=== PATIENT | female | born 1970 | race Caucasian/White ===

== ENCOUNTER 2017-10-30 16:33 | Inpatient (IN) | payer OTHER ==
[~2017-10-30] VITALS: Ht 170.2 cm; Wt 78.9 kg
[2017-10-30 21:16] VITALS: BP 126/62; PULSE 90; TEMP 36.9; O2SAT 95; Ht 170.2 cm; Wt 78.9 kg
[2017-10-30] MEDS ORDERED: METO-478 PO (21:34)
[2017-10-30] MEDS ORDERED: HYDR-3419 PO (21:34)
[2017-10-30] MEDS ORDERED: TRAZ100T29 PO (21:34)
[2017-10-30] MEDS ORDERED: GABA-113 PO (21:34)
[2017-10-30] MEDS ORDERED: ZOLP5TAB PO (21:34)
[2017-10-30] MEDS ORDERED: POLYETHYLENE (MIRALAX) 17 GM PACK PO PRN (23:00)
[2017-10-30] MEDS ORDERED: ALUMINUM/MAGNESIUM/SIMETH (MAALOX MAX) 30 ML UDC PO PRN (23:00)
[2017-10-30] MEDS ORDERED: NITROGLYCERIN 0.4 MG SL PER TAB CHARGE SL PRN (23:00)
[2017-10-30] MEDS ORDERED: ONDANSETRON INJ 2 MG/ML 2 ML VIAL IV PRN (23:00)
[2017-10-30] MEDS ORDERED: PIPERACILL/TAZOBAC CONSULT ACTIVE PRN (23:15)
[2017-10-30] MEDS ORDERED: PATIENT'S ALLERGY INFO NEEDS ENTERED SCH (23:15)
[2017-10-30 23:43] VITALS: BP 114/65; PULSE 89; TEMP 38.5; O2SAT 95
[2017-10-30 23:47] LABS: BASO % 0.1 %; BASO ABS # 0.02 K/uL (0-0.2); EOS % 0.4 %; EOS ABS # 0.05 K/uL (0-0.5); HEMATOCRIT 31.6 % (37-47); HEMOGLOBIN 10.6 g/dL (12.0-16.0); IG# 0.04 K/uL (0.00-0.02); LYMPH % 11.5 %; LYMPH ABS # 1.55 K/uL (1.2-3.4); MEAN CELL VOLUME 101.9 fL (80-100); MEAN CORPUSCULAR HEMOGLOBIN 34.2 pg (25-34); MEAN CORPUSCULAR HGB CONC 33.5 g/dl (32-36); MEAN PLATELET VOLUME 8.8 fL (7.4-10.4); MONO % 10.1 %; MONO ABS # 1.36 K/uL (0.11-0.59); NEUT % 77.6 %; NEUT ABS # 10.44 K/uL (1.4-6.5); PLATELET COUNT 278 K/uL (130-400); RED CELL DISTRIBUTION WIDTH CV 13.8 % (11.5-14.5); RED CELL DISTRIBUTION WIDTH SD 51.7 fL (36.4-46.3); WHITE BLOOD COUNT 13.46 K/uL (4.8-10.8)
[2017-10-31] VITALS (10 sets, daily range): BP systolic 96–108; BP diastolic 60–69; PULSE 61–84; TEMP 36.6–36.9; O2SAT 91–98
[2017-10-31 00:07] LABS: CALCIUM 8.1 mg/dl (8.5-10.1); CREATININE 0.58 mg/dl (0.60-1.20); POTASSIUM 3.4 mmol/L (3.5-5.1)
[2017-10-31 00:10] LABS: TOTAL PROTEIN 6.6 gm/dl (6.4-8.2)
--- NOTE | 2017-10-31 00:11 | History and Physical ---
History & Physical Date & Time of Service: Oct 30, 2017 at 23:46 Chief Complaint: Altered Mental Status Primary Care Physician: Srikanth Duke History of Present Illness Source: patient, hospital records The patient is a 47 year old female with a past medical history of HTN, Restless Leg Syndrome, Insomnia, Anxiety, and Asthma that presents as a direct admit from [facility] with AMS x 24 hours. The patients states that yesterday evening he began to notice the patient was having slurring of speech, although this not abnormal for her because she occassionally has these episodes after prolonged periods of sleeplessness. In this case, the patient has been up for almost the last 48 hours. The patient woke up this morning and once again was having slurring of speech and then was having hallucinations of people once they arrived at the ED. The patient also had persicutory hallucinations that her was trying to have her admitted to an inpatient psych facility. The patient has no past history of significant mental illness other than anxiety and has had never been admitted to a psych facility. CT head showed no acute abnormalities at [facility]. The patient was found to have a RUL pneumonia on CXR and states that she had been having progressive shortness of breath and cough over the last week. She also appreciates intermittent fever, chills, and muscle aches. The patient was also found to have urinary retention at [facility] and required a straight catheterization that yielded > 1000 cc of urine, although her UA was normal. The patient takes multiple medications for her Insomnia, Anxiety, Restless Leg, and Back Pain that could all contribute to her AMS although the patient states she has not taken extra doses of medications and does not recall any aspiration events. The patient denies any suicidal ideations or intention to hurt herself. The does provide a history of a previous seizure in 2005 that involved foaming of the mouth and generalized seizure like activity although no diagnosis was provided. She also had similar slurring of speech last summer that was believed to be secondary to her diuretics which were subsequently changed and her slurred speech resolved. Family History Noncontributory Social History Smoking Status: Current Every Day Smoker Smokeless Tobacco Use: No Alcohol Use: none Immunizations History of Influenza Vaccine: Unknown History of Tetanus Vaccine?: Unknown History of Pneumococcal: Unknown History of Hepatitis B Vaccine: Unknown Allergies Coded Allergies: Codeine (Verified Allergy, Unknown, HIVES, 10/31/17) Vomiting Home Medications Scheduled Azithromycin (Azithromycin), 250 MG PO DAILY Gabapentin (Neurontin), 300 MG PO TID Metoprolol Succinate (Toprol Xl), 10 MG PO DAILY Trazodone Hcl (Trazodone), 150 MG PO HS Scheduled PRN Albuterol Hfa (Ventolin Hfa), 1-2 PUFFS INH Q6H PRN for Shortness of Breath Hydrocodon/Acetaminophen 5MG/300MG (Vicodin (5MG/300MG)), 1 TAB PO BID PRN for Pain Review of Systems Constitutional: + chills, + weakness, + fatigue, No fever Respiratory: + cough, + wheezing, + shortness of breath, No sputum Cardiovascular: No chest pain, No orthopnea, No palpitations Abdomen: No pain, No nausea, No vomiting, No diarrhea, No constipation Genitourinary - Female: No dysuria, No urinary frequency Physical Exam Vital Signs Date Time Temp Pulse Resp B/P (MAP) Pulse Ox O2 Delivery O2 Flow Rate FiO2 10/30/17 21:16 36.9 90 16 126/62 95 Nasal Cannula 3.0 General Appearance: WD/WN, no apparent distress Head: normocephalic, atraumatic Eyes: normal inspection, sclerae normal Neck: supple, trachea midline Respiratory/Chest: chest non-tender, no respiratory distress, no accessory muscle use, + rhonchi, + wheezing Cardiovascular: regular rate, rhythm, no edema, no gallop Abdomen/GI: normal bowel sounds, non tender, soft Extremities/Musculoskelatal: no calf tenderness, no pedal edema 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, no motor/sensory deficits, alert, normal mood/affect, oriented x 3 Diagnostics Laboratory Results Results Past 24 Hours Test 10/30/17 23:14 10/30/17 23:23 Range/Units Microbiology Results 10/30/17 Blood Culture, Received Pending 10/30/17 Blood Culture, Received Pending Impression Assessment and Plan The patient is a 47 year old female with a past medical history of HTN, Restless Leg Syndrome, Insomnia, Anxiety, and Asthma that presents as a direct admit from [facility] with AMS x 24 hours Acute Encephalopathy - Differential includes Insomnia, Infectious (PNA), Medication Ingestion ( Confusion vs Cholinergic), CVA, Seizure Disorder, Neuro/Myelination disorder - Holding home Gabapentin, Vicodin, Escitalopram, Ambien, Trazodone, and Ropinirole - Dysphagia screen - NS @ 100 mls/hr - CT Head [facility] - No acute intracranial abnormalities - MRI Brain - EEG - Neurology consult to Dr. Mckenzie - Repeat CBC (WBC 8.6), CMP, UA, EKG - Urine drug screen only positive for opiates at [facility] - Lactic Acid 0.7 Acute Hypoxic Respiratory Failure 2/2 RUL Pneumonia - Supplemental Oxygen to maintain SpO2 > 90% - Aspiration Pneumonia 2/2 Insomnia? - Zosyn 3.375 IV q8h - Blood Cultures x 2 - Duonebs - CXR: RUL Infiltrate - CT Chest to evaluate for possible obstructive pathology Urinary Retention - UA wnl - Bladder scan q6h with cath if scan shows > 300cc - Currently urinating well on arrival - CT Abdomen (Srik[facility]): 1) Markedly Hydropic urinary bladder with bladder base which may be 2/2 lower outlet obstruction vs neurogenic etiolgoy 2) Enlargement of the kidneys bilaterally without hydronephrosis or perinephric stranding to suggest obstructing nephropathy. Suggestion of right ureteral duplication. Finding may be congenital given duplicated collecting system however may also represent infiltrative process vs less likely renal vein thrombosis given bilaterality. Atrial Fibrillation/ Tachycardia? - Toprol XL Continued Back Pain - Holding home Gabapentin and Vicodin Restless Leg Syndrome - Holding home Ropinirole Nicotine Use - Smoking Cessation counselling - Hold nicotine patch while having AMS DVT - SCDs Code Status - Full Resuscitation Attending addendum: I have physically seen this patient, have supervised the medical residents activities, and agree with the H&P unless as otherwise noted. Assessment and Plan: Acute respiratory failure with hypoxia/pneumonia-- Vancomycin IV per pharmacokinetic monitoring Zosyn 3.375 mg IV every 8 hours Duonebs every 4 hours while awake and every 2 hours when necessary. Solu-Medrol 40 mg IV every 8 hours Guaifenesin extended release 600 mg by mouth twice a day Nasal cannula oxygen titrate to keep pulse ox greater than or equal to 92% Sputum Gram stain and culture Acute encephalopathy-- Admit to the telemetry unit for frequent neurologic checks and monitor for arrhythmia. Hold any medications may affect her sensorium including gabapentin, Vicodin, Lexapro, Ambien, trazodone and ropinirole. NSS at 100 mils per hour Order MRI of brain and EEG, patient had normal CT of head at [facility] prior to transfer. Consult neurology. Advanced Directives Existing Advance Directive: No Existing Living Will: No Existing Power of Information Technology Internship: No Resuscitation Status Full Resuscitation VTE Prophylaxis Will order VTE Prophylaxis: Yes Resident Tracking Resident Involvement: Resident Care Provided Care Provided: Adult Hospital Medicine
[2017-10-31 01:02] LABS: INFLUENZA B ANTIGEN Neg for Influ B (NEG)
[2017-10-31] MEDS ORDERED: GADAVIST IV PRN (01:10)
[2017-10-31] MEDS ORDERED: PIPERACILL/TAZOBAC IV 3.375 GM in DEXTROSE 5% 100ML IV ONE (01:15)
[2017-10-31] MEDS: SODIUM CHLORIDE 0.9% 1000ML 1,000 ML IV SCH ×4 (01:45→17:00)
[2017-10-31] MEDS: ACETAMINOPHEN 325 MG TAB PO PRN ×2 (01:47→13:11)
[2017-10-31] MEDS ORDERED: PIPERACILL/TAZOBAC IV 3.375 GM in DEXTROSE 5% 100ML 100 ML IV SCH (06:00)
--- NOTE | 2017-10-31 06:26 | DIAGNOSTIC IMAGING REPORT ---
CHEST ONE VIEW PORTABLE CLINICAL HISTORY: Pneumonia, Hypoxia dyspnea COMPARISON STUDY: No previous studies for comparison. FINDINGS: Poorly defined parenchymal infiltrate right upper lobe. Interstitial changes throughout the basilar regions bilaterally. Diaphragms are smooth. Costophrenic angles are sharp. IMPRESSION: Infiltrative changes right upper lobe and bibasilar regions. The above report was generated using voice recognition software. It may contain grammatical, syntax or spelling errors. Electronically signed by: Damien Dennis M.D. 10/31/2017 6:25 AM Dictated Date/Time: 10/31/2017 6:24 AM
[2017-10-31] MEDS: PIPERACILL/TAZOBAC IV 3.375 GM in DEXTROSE 5% 100ML IV SCH ×3 (06:29→22:04)
--- NOTE | 2017-10-31 06:30 | DIAGNOSTIC IMAGING REPORT ---
MRI OF THE BRAIN WITHOUT AND WITH IV CONTRAST CLINICAL HISTORY: AMS, Hallucinations COMPARISON STUDY: No previous studies for comparison. TECHNIQUE: MRI of the brain was performed from the vertex to the skull base utilizing various T1 and T2 weighted sequences. Following the IV administration of 7.5 mL of Gadavist contrast, additional enhanced images were obtained. FINDINGS: Sagittal T1, axial diffusion, proton density and T2 weighted axial, coronal FLAIR, and pre and post axial T1-weighted images were acquired. These were supplemented with post gadolinium coronal T1 weighted images. No intra or extra-axial mass lesions are visualized. Axial diffusion-weighted images reveal no evidence of acute or subacute infarction. There is no evidence of ventricular dilatation. Proton density T2-weighted and FLAIR images reveal no significant intraparenchymal signal abnormalities. There are no abnormal flow voids. There is no evidence of pathologic enhancement. The examination is mildly limited due to motion artifact. IMPRESSION: 1. Examination mildly limited due to motion artifact 2. Normal MRI of the brain for age Electronically signed by: Bakari Graves M.D. 10/31/2017 6:29 AM Dictated Date/Time: 10/31/2017 6:26 AM
--- NOTE | 2017-10-31 06:33 | DIAGNOSTIC IMAGING REPORT ---
(CHEST) THORAX WITHOUT CT DOSE: 406.98 mGycm HISTORY: Pneumonia RUL Pneumonia TECHNIQUE: Multiaxial CT images of the chest were performed without contrast. A dose lowering technique was utilized adhering to the principles of ALARA. COMPARISON: None. FINDINGS: Diffuse parenchymal infiltrates of the right upper and to a lesser extent left upper lobe. Similar but considerably less prominent findings in both lung bases. Trace amount pleural fluid both lung bases. No significant mediastinal or hilar adenopathy. Several small reactive nodes. Potential or reactive right hilar sarita change with mild narrowing of the right hilar rhonchi. IMPRESSION: Diffuse bilateral parenchymal infiltrative change most prominent in the right upper lobe. 2. Mild reactive mediastinal as well as right hilar adenopathy with mild narrowing of the right hilar bronchi. 3. Diagnostic considerations include diffuse pneumonitis versus atypical pulmonary edema. The above report was generated using voice recognition software. It may contain grammatical, syntax or spelling errors. Electronically signed by: Damien Dennis M.D. 10/31/2017 6:31 AM Dictated Date/Time: 10/31/2017 6:27 AM
[2017-10-31] MEDS: ALBUT/IPRATROP 3MG/0.5MG NEB 3 ML VIAL INH SCH ×4 (07:05→19:47)
--- NOTE | 2017-10-31 08:08 | Family Medicine Progress Note ---
Progress Note Date of Service Oct 31, 2017. Subjective Pt evaluation today including: conversation w/ patient, conversation w/ family Found patient awake, sitting up for her EEG. She has a bit of a flat affect but states that she's doing well. Does not volunteer any information but answers questions easily and quickly. Says she's in the hospital due to pneumonia only. Says that she used to have a fever and cough that has resolved. Otherwise does not volunteer any other acute issues. Doesn't seem to be fully aware she had slurred speech (per in the room), but both say her present speech is normal. She says she had a mild headache overnight, relieved with tylenol. Denies any current pains, N/V, difficulties with extremity movement or other focal neuro, or any other acute concerns. did not note any acute concerns as well. On re-evaluation on formal morning rounds, patient is far more interactive, sitting up, and giving her recent history clearly and lucidly. Still no acute patient concerns. Constitutional: + fever Respiratory: + cough, No shortness of breath Cardiovascular: No chest pain, No edema Abdomen: No pain, No nausea, No vomiting, No diarrhea Female : No dysuria Psychiatric: + insomnia Medications Current Inpatient Medications Medications (Trade) Dose Ordered Sig/Tri Route Start Time Stop Time Status Last Admin Dose Admin Sodium Chloride 1,000 ml @ 125 mls/hr Q8H IV 10/30/17 22:49 11/29/17 22:48 10/31/17 01:45 125 MLS/HR Acetaminophen (Tylenol Tab) 650 mg Q4H PRN PO 10/30/17 23:00 11/29/17 22:59 10/31/17 01:47 650 MG Al Hydrox/Mg Hydrox/Simethicone (Maalox Max Susp) 15 ml Q4H PRN PO 10/30/17 23:00 11/29/17 22:59 Ondansetron HCl (Zofran Inj) 4 mg Q6H PRN IV 10/30/17 23:00 11/29/17 22:59 Nitroglycerin (Nitrostat Tab) 0.4 mg UD PRN SL 10/30/17 23:00 11/29/17 22:59 Polyethylene (Miralax Powder Packet) 17 gm DAILY PRN PO 10/30/17 23:00 11/29/17 22:59 Metoprolol Succinate (Toprol Xl Tab) 25 mg DAILY PO 10/31/17 09:00 11/30/17 08:59 Aspirin (Aspirin Chew) 81 mg QAM PO 10/31/17 09:00 11/30/17 08:59 Albuterol/ Ipratropium (Duoneb) 3 ml QIDR INH 10/31/17 08:00 11/30/17 07:59 10/31/17 07:05 3 ML Miscellaneous Information (Consult) 1 ea UD PRN N/A 10/30/17 23:15 11/29/17 23:14 Piperacillin Sod/ Tazobactam Sod 3.375 gm/Dextrose 115 ml @ 28.75 mls/ hr Q8H IV 10/31/17 06:00 11/07/17 05:59 10/31/17 06:29 28.75 MLS/HR Gadobutrol (Gadavist) 7.5 mmol UD PRN IV 10/31/17 01:10 11/04/17 01:09 Objective Vital Signs Date Time Temp Pulse Resp B/P (MAP) Pulse Ox O2 Delivery O2 Flow Rate FiO2 10/31/17 04:10 Nasal Cannula 3.0 10/31/17 03:30 36.6 70 23 101/64 (76) 97 Nasal Cannula 3.0 10/31/17 00:05 Nasal Cannula 3.0 10/30/17 23:43 38.5 89 22 114/65 (81) 95 Nasal Cannula 3.0 10/30/17 21:16 36.9 90 16 126/62 95 Nasal Cannula 3.0 Physical Exam Notes: General Appearance: Awake, alert & oriented to person, place, time, and why here, and appears in NAD. CV: +S1S2 RRR, no murmurs. No peripheral edema. Pulm: Rhonchi in right upper lobe. No respiratory distress or accessory muscle use. Abdomen: +BS, soft, non-tender, non-distended. Extremities: No pedal edema or calf tenderness. Neuro: Speaking clearly in full sentences, no slurred speech ( at bedside agrees). Symmetric smile. Strength 5/5 in all extremities. Distal extremity sensation equal and intact bilaterally. EEG leads on this morning. Lines: Left arm PIV. Laboratory Results Test 10/30/17 23:23 10/30/17 23:58 10/31/17 08:00 RDW Standard Deviation 51.7 fL (36.4-46.3) RDW Coefficient of Variation 13.8 % (11.5-14.5) White Blood Count 13.46 K/uL (4.8-10.8) Red Blood Count 3.10 M/uL (4.2-5.4) Hemoglobin 10.6 g/dL (12.0-16.0) Hematocrit 31.6 % (37-47) Mean Corpuscular Volume 101.9 fL (80-100) Mean Corpuscular Hemoglobin 34.2 pg (25-34) Mean Corpuscular Hemoglobin Concent 33.5 g/dl (32-36) Platelet Count 278 K/uL (130-400) Mean Platelet Volume 8.8 fL (7.4-10.4) Neutrophils (%) (Auto) 77.6 % Lymphocytes (%) (Auto) 11.5 % Monocytes (%) (Auto) 10.1 % Eosinophils (%) (Auto) 0.4 % Basophils (%) (Auto) 0.1 % Neutrophils # (Auto) 10.44 K/uL (1.4-6.5) Lymphocytes # (Auto) 1.55 K/uL (1.2-3.4) Monocytes # (Auto) 1.36 K/uL (0.11-0.59) Eosinophils # (Auto) 0.05 K/uL (0-0.5) Basophils # (Auto) 0.02 K/uL (0-0.2) Immature Granulocyte % (Auto) 0.3 % Immature Granulocyte # (Auto) 0.04 K/uL (0.00-0.02) Erythrocyte Sedimentation Rate 20 mm/hr (0-21) Est Creatinine Clear Calc Drug Dose 128.3 ml/min Total Bilirubin 0.5 mg/dl (0.2-1) Aspartate Amino Transf (AST/SGOT) 11 U/L (15-37) Alanine Aminotransferase (ALT/SGPT) 11 U/L (12-78) Alkaline Phosphatase 80 U/L (45-117) C-Reactive Protein 9.74 mg/dl (0-0.29) Total Protein 6.6 gm/dl (6.4-8.2) Albumin 3.0 gm/dl (3.4-5.0) Globulin 3.6 gm/dl (2.5-4.0) Albumin/Globulin Ratio 0.8 (0.9-2) Influenza Type A Antigen Neg for Influ A (NEG) Influenza Type B Antigen Neg for Influ B (NEG) Assessment and Plan 47 yo female admitted on early [id number] s/p transfer from [facility] for AMS. PMH: HTN, Restless Leg Syndrome, Insomnia, Anxiety, and Asthma Acute Encephalopathy: Exact source unclear. noted slurred speech but patient seems either generally unaware this happened or indifferent to it. Speech is normal this morning. Per report, CT head at OSH was normal and UDS was positive for opiates only (and patient is on vicodin for back pain). Monitor strip is NSR. 07Mar MRI brain normal (but with motion artifact). 07Mar EEG normal. Does appear to have PNA as an infectious source. No report of trauma or ingestions. Some comment of insomnia / up 48 hours contributing, but patient says she slept well overnight last night. She did mention that she took an ambien, which she normally doesn't do, so that may be a prime contributor. - Neurology consulted, see their note for specifics. Pneumonia: Patient had noted recent cough and fevers, but says both since improved. Per CT chest, has RUL infiltrate with mediastinal & right hilar adenopathy. No reported exposure to TB, recent travel, or exotic animals at home. Granddaughter recently had the flu, but patient is influenza negative here. Here started on zosyn q8h and azithromycin for atypical coverage. 06Mar BCx x 2 pending. Last fever . WBC 13. - Supplemental oxygen to keep SpO2 > 92%. Duonebs QID. Urinary retention: Patient says it has "always been that way". Noted at OSH with straight cath > [address] scan there noted "markedly hydropic urinary bladder" possibly due to outlet obstruction vs neurogenic etiology. Also noted enlargement of both kidneys without hydronephrosis. At present, voiding without difficulty. - Checking UA here. Monitoring. Insomnia / Possible gina: Report of patient being up for 48 hours straight. PMH anxiety and insomnia but no other known psychiatric illness or similar admissions. However, patient says she's had similar insomnia for 30+ years. - Will continue medical workup. Consider refer back to psychiatry once this is complete. Monitor sleep and activity here. HTN: -- On Toprol XL. Back Pain: -- Holding home Gabapentin and Vicodin. Restless Leg Syndrome: -- Holding home Ropinirole Nicotine Use: Smokes 1 ppd. Smoking Cessation counselling. Restarted her nicotine patch. Code status: Full code Diet: AHA diet. DVT prophy: SCD's. PT/OT: Deferred. Disbo: Admit to telemetry, but will transfer to med/surg floor today. Resident Physician Supervision Note: I interviewed and examined the patient. Discussed with Dr. Toscano and agree with findings and plan as documented in the note. Any exceptions or clarifications are listed here: None This patient is back to her normal state according to her she however does have some pressured speech and appears anxious patient states that she has not slept continuously for almost 30 years and occasionally stays up 2-4 days in a row she has worked with her primary care doctor and tried multiple medications to help her sleeping 1 day prior to this event though she did take an Ambien she takes occasionally her says he described her as being awake but sleeping at the same time almost like she was sleepwalking this could be side effect from her Ambien. Dr. Toscano and I personally reviewed her CT scan of her chest this appears to be an atypical pneumonia having multiple small areas of involvement including the contralateral lung. Subsequently we would add azithromycin to her initial treatment of Zosyn Vital signs are temp 38 5 now defervesced pulse 70 respiration 18 BP 108/69 O2 sat on room air is above 90 physically she is awake alert and appropriate cranial nerves II through XII are intact her cardiac exam is regular lungs have decreased breath sounds at the bases but no overt rales crackles egophony or dullness Encephalopathy of undetermined origin part perhaps toxic from her Ambien, associated with the fever or also from sleep deprivation. We will treat her with Zosyn and azithromycin for infectious etiologies we will not have her take an additional Ambien and try to work with some sleep-related agents during her hospital stay Documented By: Shiv Oconnor Resident Tracking Resident Involvement: Resident Care Provided Care Provided: Adult Hospital Medicine (inpatient)
[2017-10-31 08:19] LABS: BASO % 0.2 %; BASO ABS # 0.02 K/uL (0-0.2); EOS % 1.5 %; EOS ABS # 0.12 K/uL (0-0.5); HEMATOCRIT 32.2 % (37-47); HEMOGLOBIN 10.3 g/dL (12.0-16.0); IG# 0.01 K/uL (0.00-0.02); LYMPH % 25.7 %; LYMPH ABS # 2.06 K/uL (1.2-3.4); MEAN CELL VOLUME 103.5 fL (80-100); MEAN CORPUSCULAR HEMOGLOBIN 33.1 pg (25-34); MEAN PLATELET VOLUME 8.8 fL (7.4-10.4); MONO % 14.3 %; MONO ABS # 1.15 K/uL (0.11-0.59); NEUT % 58.2 %; NEUT ABS # 4.66 K/uL (1.4-6.5); PLATELET COUNT 268 K/uL (130-400); RED CELL DISTRIBUTION WIDTH CV 13.7 % (11.5-14.5); RED CELL DISTRIBUTION WIDTH SD 51.9 fL (36.4-46.3); WHITE BLOOD COUNT 8.02 K/uL (4.8-10.8)
[2017-10-31] MEDS: METOPROLOL SUCC 25MG EXT REL TAB PO SCH (08:36)
[2017-10-31] MEDS: ASPIRIN 81 MG CHEW PO SCH (08:36)
[2017-10-31 08:45] LABS: CREATININE 0.63 mg/dl (0.60-1.20); POTASSIUM 3.3 mmol/L (3.5-5.1)
--- NOTE | 2017-10-31 08:50 | EEG Procedure Note ---
EEG Procedure Note Date of Service Oct 31, 2017. Start / End Times Start Time: 7:24 AM End Time: 7:44 AM Referring Physician Behzad Francis History This is a 47-year-old female who presents an acute encephalopathy. EEG for further evaluation of possible seizure etiology. Home Medication List Scheduled Gabapentin (Neurontin), 300 MG PO TID Metoprolol Succinate (Toprol Xl), 10 MG PO DAILY Trazodone Hcl (Trazodone), 150 MG PO HS Zolpidem Tartrate (Ambien), 1 TAB PO HS Scheduled PRN Hydrocodon/Acetaminophen 5MG/300MG (Vicodin (5MG/300MG)), 1 TAB PO BID PRN for Pain Inpatient Medication List Current Inpatient Medications Medications (Trade) Dose Ordered Sig/Tri Route Start Time Stop Time Status Last Admin Dose Admin Sodium Chloride 1,000 ml @ 125 mls/hr Q8H IV 10/30/17 22:49 11/29/17 22:48 10/31/17 01:45 125 MLS/HR Acetaminophen (Tylenol Tab) 650 mg Q4H PRN PO 10/30/17 23:00 11/29/17 22:59 10/31/17 01:47 650 MG Al Hydrox/Mg Hydrox/Simethicone (Maalox Max Susp) 15 ml Q4H PRN PO 10/30/17 23:00 11/29/17 22:59 Ondansetron HCl (Zofran Inj) 4 mg Q6H PRN IV 10/30/17 23:00 11/29/17 22:59 Nitroglycerin (Nitrostat Tab) 0.4 mg UD PRN SL 10/30/17 23:00 11/29/17 22:59 Polyethylene (Miralax Powder Packet) 17 gm DAILY PRN PO 10/30/17 23:00 11/29/17 22:59 Metoprolol Succinate (Toprol Xl Tab) 25 mg DAILY PO 10/31/17 09:00 11/30/17 08:59 10/31/17 08:36 25 MG Aspirin (Aspirin Chew) 81 mg QAM PO 10/31/17 09:00 11/30/17 08:59 10/31/17 08:36 81 MG Albuterol/ Ipratropium (Duoneb) 3 ml QIDR INH 10/31/17 08:00 11/30/17 07:59 10/31/17 07:05 3 ML Miscellaneous Information (Consult) 1 ea UD PRN N/A 10/30/17 23:15 11/29/17 23:14 Piperacillin Sod/ Tazobactam Sod 3.375 gm/Dextrose 115 ml @ 28.75 mls/ hr Q8H IV 10/31/17 06:00 11/07/17 05:59 10/31/17 06:29 28.75 MLS/HR Gadobutrol (Gadavist) 7.5 mmol UD PRN IV 10/31/17 01:10 11/04/17 01:09 Description This is a 21 electrode EEG with a single channel dedicated to limited EKG. The electrodes were placed in accordance with the International 10-20 system. At the start of this recording the patient was in an awake state. Background was well organized with a symmetric moderate amplitude mix of alpha and beta frequencies. There was a moderate amplitude well-formed symmetric posterior dominant rhythm of 8-9 Hz that was reactive to eye opening and closure. Hyperventilation was not done. Photic stimulation at various frequencies did not produce any abnormalities. Sleep was indicated by vertex waves and symmetric sleep spindles. Interpretation This is a normal awake and asleep routine EEG There was no electrographic seizures or epileptiform discharges. Clinical Correlation A normal EEG does not rule out epilepsy if there is a strong clinical suspicion.
--- NOTE | 2017-10-31 08:54 | Neurology Consultation ---
Neurology Consultation Date of Consultation: Oct 31, 2017. Attending Physician: Cyril Pompa M.D. Primary Care Physician: Srikanth Duke Reason for Consultation: Altered mental status History of Present Illness Source: patient, spouse 47 y/o F with PMH of HTN, Restless Leg Syndrome, Insomnia, Anxiety, and Asthma that presents as a direct admit from [place] with AMS x 24 hours. The patient has a long standing h/o insomnia and usually takes trazodone, gabapentin with as needed Ambien . She stated that she hadn't slept in about 48 hours and her noted that her speech was slurred with confusion. She also c/o fever/ chills, muscle aches and CXR obtained at [facility] revealed a RUL pneumonia. a Head CT was also obtained which was essentially normal. The patient was also found to have urinary retention at [facility] and required a straight catheterization that yielded > 1000 cc of urine, although her UA was normal. She stated that she had a remote history of a single episode of seizure in 2005 which was thought to be secondary to an antidepressant she was on which was discontinued. Today she feels like she is back to baseline. States that she was finally able to sleep last night and feels rested. denies any numbness/tingling, motor weakness, slurred speech, vision changes. states that her breathing is also improved and is currently on abx was pneumonia. denies any CP, palpitations. Past Medical/Surgical History PMH: HTN, anxiety, insomnia, RLS, migraine, asthma Family History No family history of seizures or epilepsy Social History Patient lives with her . Is normally independent her activities of daily living. Positive tobacco use. No alcohol or illegal drug use. Smoking Status: Current every day smoker Drug Use: none Allergies Coded Allergies: Codeine (Verified Allergy, Unknown, HIVES, 10/31/17) Vomiting Current Inpatient Medications Current Inpatient Medications Medications (Trade) Dose Ordered Sig/Tri Route Start Time Stop Time Status Last Admin Dose Admin Sodium Chloride 1,000 ml @ 125 mls/hr Q8H IV 10/30/17 22:49 11/29/17 22:48 10/31/17 01:45 125 MLS/HR Acetaminophen (Tylenol Tab) 650 mg Q4H PRN PO 10/30/17 23:00 4/5/18 22:59 10/31/17 01:47 650 MG Al Hydrox/Mg Hydrox/Simethicone (Maalox Max Susp) 15 ml Q4H PRN PO 10/30/17 23:00 11/29/17 22:59 Ondansetron HCl (Zofran Inj) 4 mg Q6H PRN IV 10/30/17 23:00 11/29/17 22:59 Nitroglycerin (Nitrostat Tab) 0.4 mg UD PRN SL 10/30/17 23:00 11/29/17 22:59 Polyethylene (Miralax Powder Packet) 17 gm DAILY PRN PO 10/30/17 23:00 11/29/17 22:59 Metoprolol Succinate (Toprol Xl Tab) 25 mg DAILY PO 10/31/17 09:00 11/30/17 08:59 Aspirin (Aspirin Chew) 81 mg QAM PO 10/31/17 09:00 11/30/17 08:59 Albuterol/ Ipratropium (Duoneb) 3 ml QIDR INH 10/31/17 08:00 11/30/17 07:59 10/31/17 07:05 3 ML Miscellaneous Information (Consult) 1 ea UD PRN N/A 10/30/17 23:15 11/29/17 23:14 Piperacillin Sod/ Tazobactam Sod 3.375 gm/Dextrose 115 ml @ 28.75 mls/ hr Q8H IV 10/31/17 06:00 11/07/17 05:59 10/31/17 06:29 28.75 MLS/HR Gadobutrol (Gadavist) 7.5 mmol UD PRN IV 10/31/17 01:10 11/04/17 01:09 Review of Systems did note that she seemed to be warm feverish the day before. Otherwise her complete review of systems negative except for the above-noted in HPI. Constitutional: + fever, + chills, + weakness Eyes: No worsening of vision ENT: No hearing loss Respiratory: + shortness of breath, + dyspnea on exertion, No cough Cardiovascular: No chest pain, No orthopnea Abdomen: No pain, No nausea, No vomiting Musculoskeletal: + muscle pain, No joint pain Genitourinary - Female: No dysuria, No urinary frequency Neurologic: No memory loss Psychiatric: + anxiety, + insomnia Physical Exam Vital Signs (Past 24 Hrs): Date Time Temp Pulse Resp B/P (MAP) Pulse Ox O2 Delivery O2 Flow Rate FiO2 10/31/17 08:08 36.9 70 18 108/69 (82) 96 10/31/17 04:10 Nasal Cannula 3.0 10/31/17 03:30 36.6 70 23 101/64 (76) 97 Nasal Cannula 3.0 10/31/17 00:05 Nasal Cannula 3.0 10/30/17 23:43 38.5 89 22 114/65 (81) 95 Nasal Cannula 3.0 10/30/17 21:16 36.9 90 16 126/62 95 Nasal Cannula 3.0 GENERAL: Patient is in no acute distress. HEENT: No acute trauma, normocephalic atraumatic, mucous membranes moist, no nasal congestion, no scleral icterus, PEERLA, optic discs sharp, EOMI NECK: No stridor, no adenopathy, no meningismus, trachea is midline. LUNGS: Clear to auscultation bilaterally, rhonchi and scattered wheezes, breath sounds equal. HEART: Without murmurs gallops or rubs, regular rate and rhythm. ABDOMEN: Soft, nontender, bowel sounds positive, no hernias, no peritonitis. EXTREMITIES: No cyanosis or edema, full range of motion of all the joints without pain or difficulty, no signs for acute trauma. NEUROLOGIC: Oriented x 3, no acute motor or sensory deficits, no focal weakness. SKIN: No rash, no jaundice, no diaphoresis. Laboratory Results Past 24 Hours: 10/31/17 08:05 Red Blood Count 3.11, Mean Corpuscular Volume 103.5, Mean Corpuscular Hemoglobin 33.1, Mean Corpuscular Hemoglobin Concent 32.0, Mean Platelet Volume 8.8, Neutrophils (%) (Auto) 58.2, Lymphocytes (%) (Auto) 25.7, Monocytes (%) ( Auto) 14.3, Eosinophils (%) (Auto) 1.5, Basophils (%) (Auto) 0.2, Neutrophils # (Auto) 4.66, Lymphocytes # (Auto) 2.06, Monocytes # (Auto) 1.15, Eosinophils # ( Auto) 0.12, Basophils # (Auto) 0.02 Test 10/30/17 23:23 10/30/17 23:58 10/31/17 08:05 Erythrocyte Sedimentation Rate 20 mm/hr (0-21) Est Creatinine Clear Calc Drug Dose 128.3 ml/min Total Bilirubin 0.5 mg/dl (0.2-1) Aspartate Amino Transf (AST/SGOT) 11 U/L (15-37) Alanine Aminotransferase (ALT/SGPT) 11 U/L (12-78) Alkaline Phosphatase 80 U/L (45-117) C-Reactive Protein 9.74 mg/dl (0-0.29) Total Protein 6.6 gm/dl (6.4-8.2) Albumin 3.0 gm/dl (3.4-5.0) Globulin 3.6 gm/dl (2.5-4.0) Albumin/Globulin Ratio 0.8 (0.9-2) Influenza Type A Antigen Neg for Influ A (NEG) Influenza Type B Antigen Neg for Influ B (NEG) White Blood Count 8.02 K/uL (4.8-10.8) Red Blood Count 3.11 M/uL (4.2-5.4) Hemoglobin 10.3 g/dL (12.0-16.0) Hematocrit 32.2 % (37-47) Mean Corpuscular Volume 103.5 fL (80-100) Mean Corpuscular Hemoglobin 33.1 pg (25-34) Mean Corpuscular Hemoglobin Concent 32.0 g/dl (32-36) Platelet Count 268 K/uL (130-400) Mean Platelet Volume 8.8 fL (7.4-10.4) Neutrophils (%) (Auto) 58.2 % Lymphocytes (%) (Auto) 25.7 % Monocytes (%) (Auto) 14.3 % Eosinophils (%) (Auto) 1.5 % Basophils (%) (Auto) 0.2 % Neutrophils # (Auto) 4.66 K/uL (1.4-6.5) Lymphocytes # (Auto) 2.06 K/uL (1.2-3.4) Monocytes # (Auto) 1.15 K/uL (0.11-0.59) Eosinophils # (Auto) 0.12 K/uL (0-0.5) Basophils # (Auto) 0.02 K/uL (0-0.2) RDW Standard Deviation 51.9 fL (36.4-46.3) RDW Coefficient of Variation 13.7 % (11.5-14.5) Immature Granulocyte % (Auto) 0.1 % Immature Granulocyte # (Auto) 0.01 K/uL (0.00-0.02) Imaging [~ rep ct add3]] CHEST ONE VIEW PORTABLE CLINICAL HISTORY: Pneumonia, Hypoxia dyspnea COMPARISON STUDY: No previous studies for comparison. FINDINGS: Poorly defined parenchymal infiltrate right upper lobe. Interstitial changes throughout the basilar regions bilaterally. Diaphragms are smooth. Costophrenic angles are sharp. IMPRESSION: Infiltrative changes right upper lobe and bibasilar regions. [~ rep ct add3]] (CHEST) THORAX WITHOUT CT DOSE: 406.98 mGycm HISTORY: Pneumonia RUL Pneumonia TECHNIQUE: Multiaxial CT images of the chest were performed without contrast. A dose lowering technique was utilized adhering to the principles of ALARA. COMPARISON: None. FINDINGS: Diffuse parenchymal infiltrates of the right upper and to a lesser extent left upper lobe. Similar but considerably less prominent findings in both lung bases. Trace amount pleural fluid both lung bases. No significant mediastinal or hilar adenopathy. Several small reactive nodes. Potential or reactive right hilar sarita change with mild narrowing of the right hilar rhonchi. IMPRESSION: Diffuse bilateral parenchymal infiltrative change most prominent in the right upper lobe. 2. Mild reactive mediastinal as well as right hilar adenopathy with mild narrowing of the right hilar bronchi. 3. Diagnostic considerations include diffuse pneumonitis versus atypical pulmonary edema. [~ rep ct add3]] MRI OF THE BRAIN WITHOUT AND WITH IV CONTRAST CLINICAL HISTORY: AMS, Hallucinations COMPARISON STUDY: No previous studies for comparison. TECHNIQUE: MRI of the brain was performed from the vertex to the skull base utilizing various T1 and T2 weighted sequences. Following the IV administration of 7.5 mL of Gadavist contrast, additional enhanced images were obtained. FINDINGS: Sagittal T1, axial diffusion, proton density and T2 weighted axial, coronal FLAIR, and pre and post axial T1-weighted images were acquired. These were supplemented with post gadolinium coronal T1 weighted images. No intra or extra-axial mass lesions are visualized. Axial diffusion-weighted images reveal no evidence of acute or subacute infarction. There is no evidence of ventricular dilatation. Proton density T2-weighted and FLAIR images reveal no significant intraparenchymal signal abnormalities. There are no abnormal flow voids. There is no evidence of pathologic enhancement. The examination is mildly limited due to motion artifact. IMPRESSION: 1. Examination mildly limited due to motion artifact 2. Normal MRI of the brain for age Electronically signed by: Bakari Graves M.D. 10/31/2017 6:29 AM Dictated Date/Time: 10/31/2017 6:26 AM Impression 47 y/o F with PMH of HTN, Restless Leg Syndrome, Insomnia, Anxiety, and Asthma that presents as a direct admit from [place] with AMS x 24 hours. The patient has a long standing h/o insomnia and usually takes trazodone, gabapentin with as needed Ambien . She stated that she hadn't slept in about 48 hours and her noted that her speech was slurred with confusion. CXR and chest CT revealed RUL pneumonia. Head CT at [place] was negative. MRI was WNL. EEG was normal It is likely her AMS was contributed by sleep deprivation, multiple medications and a pneumonia. She appears to be at baseline today which is confirmed by her . - Continue antibiotics per primary team for pneumonia. - Follow up with PCP regarding insomnia. Plan Neurology attending addendum: This is a 47-year-old female who presented with acute encephalopathy for 24 hours. Has had similar episodes in the past when she has been unable to sleep for several days. This episode seemed slightly worse to the brought her in for evaluation. Had slurred speech which she has had with insomnia episodes in the past. also noted that she was acting more confused. Examples were calling out for their granddaughter and not remembering that her granddaughter had gone home already. No visual or auditory hallucinations. Patient reports that every week she has trouble sleeping for 1-2 days in a row. Takes Ambien as needed but does not take it every night. Reports that she has seen psychiatry in the past for her anxiety and insomnia, but did not feel that it was helpful and no longer follows with them. Patient did have a generalized seizure-like episode in 2016 which she reports was believed to be provoked from an antidepressive medication. She has not had a seizure before or since then. On review of systems the patient also notes more frequent headaches in the last 2 weeks. She reports that typically she gets migraine headache every few months. Responds well to Maxalt. MRI of the brain report and images were reviewed by myself and is normal. EEG was reviewed by myself and was a normal awake and asleep As part of the patient's workup she did receive a chest x-ray which was suggestive of a right upper lobe pneumonia and has elevated WBCs on lab work. Was also noted to have urinary retention in the emergency room. Tox screen at outside ER was reported as negative except for opioids, which the patient does take Vicodin for back pain. Gen.: Patient is alert and oriented in no acute distress sitting in a chair Heart: Regular rate and rhythm Extremities: No gross deformities or rashes noted Neurological examination: Mental status: Patient is alert and oriented to person place and time. Able to give his own history. Good fund of knowledge. Attention and concentration normal for the situation. Recent and remote memory intact Speech is fluent without any dysarthria or aphasia noted Cranial nerves: Funduscopic examination was difficult to visualize but no papilledema seen. Pupils equally round and reactive to light. Extraocular muscles intact without nystagmus. No facial asymmetry noted. Facial sensation intact. Tongue midline. Good palatal elevation. Hearing grossly intact voice. Strength: 5/5 both proximal and distal in all extremities. No arm drift.Tone is normal. Sensation: Grossly intact to light touch in all extremities Deep tendon reflexes: +1 in bilateral biceps and patellar. Coordination: Patient has good finger to nose without dysmetria Station within the bed is normal. Overall patient appeared to have had acute encephalopathy that was multifactorial including severe insomnia, medications, and right upper lobe pneumonia. No suggestion of recent seizures. Sounds like single life time seizure in 2005 may have been medication provoked. Pneumonia management per hospitalist team. Recommend that she follow-up with her primary care physician regarding severe insomnia. I would also highly recommend following up with a psychiatrist for severe insomnia (typically this is due to uncontrolled anxiety or depression). Patient seems resistant to following up to psychiatry at this time. May continue Maxalt as needed for migraine headaches. Instructed her not to use more than 2 days out of the week to avoid rebound headaches. Can take over- the-counter Aleve in between if needed. Thank you for allowing me to participate in this patient's care. If there is any questions or concerns, feel free to call/page me. -Selena Mckenzie, DO Resident Tracking Resident Involvement: Resident Care Provided Care Provided: [facility] Medicine
[2017-10-31] MEDS: AZITHROMYCIN IV 500 MG in DEXTROSE 5% 250ML 250 ML IV SCH (11:06)
[2017-10-31] MEDS: NICOTINE 21 MG/24 HR TDSY TD SCH (11:07)
[2017-10-31] MEDS: POTASSIUM CHLORIDE 20 MEQ TABCR PO SCH (21:06)
[2017-11-01] MEDS: SODIUM CHLORIDE 0.9% 1000ML 1,000 ML IV SCH (01:51)
[2017-11-01 06:02] LABS: BASO % 0.2 %; BASO ABS # 0.02 K/uL (0-0.2); EOS % 1.2 %; EOS ABS # 0.15 K/uL (0-0.5); HEMATOCRIT 33.2 % (37-47); HEMOGLOBIN 10.8 g/dL (12.0-16.0); IG# 0.04 K/uL (0.00-0.02); LYMPH % 13.8 %; MEAN CELL VOLUME 103.1 fL (80-100); MEAN CORPUSCULAR HEMOGLOBIN 33.5 pg (25-34); MEAN CORPUSCULAR HGB CONC 32.5 g/dl (32-36); MONO % 8.9 %; NEUT % 75.6 %; NEUT ABS # 9.33 K/uL (1.4-6.5); PLATELET COUNT 289 K/uL (130-400); RED CELL DISTRIBUTION WIDTH CV 13.7 % (11.5-14.5); WHITE BLOOD COUNT 12.34 K/uL (4.8-10.8)
[2017-11-01] MEDS: PIPERACILL/TAZOBAC IV 3.375 GM in DEXTROSE 5% 100ML IV SCH (06:08)
[2017-11-01] MEDS ORDERED: NURSING VERBAL MED ORDER ONE (06:15)
[2017-11-01 07:04] LABS: CALCIUM 7.8 mg/dl (8.5-10.1); CREATININE 0.68 mg/dl (0.60-1.20); POTASSIUM 3.8 mmol/L (3.5-5.1)
[2017-11-01] MEDS: ALBUT/IPRATROP 3MG/0.5MG NEB 3 ML VIAL INH SCH ×2 (07:05→11:23)
[2017-11-01 07:12] VITALS: PULSE 99; O2SAT 90
[2017-11-01] MEDS: NICOTINE 21 MG/24 HR TDSY TD SCH (07:26)
--- NOTE | 2017-11-01 08:03 | Family Medicine Progress Note ---
Progress Note Date of Service Nov 01, 2017. Medications Current Inpatient Medications Medications (Trade) Dose Ordered Sig/Tri Route Start Time Stop Time Status Last Admin Dose Admin Sodium Chloride 1,000 ml @ 125 mls/hr Q8H IV 10/30/17 22:49 11/29/17 22:48 11/01/17 01:51 125 MLS/HR Acetaminophen (Tylenol Tab) 650 mg Q4H PRN PO 10/30/17 23:00 11/29/17 22:59 10/31/17 13:11 650 MG Al Hydrox/Mg Hydrox/Simethicone (Maalox Max Susp) 15 ml Q4H PRN PO 10/30/17 23:00 11/29/17 22:59 Ondansetron HCl (Zofran Inj) 4 mg Q6H PRN IV 10/30/17 23:00 11/29/17 22:59 Nitroglycerin (Nitrostat Tab) 0.4 mg UD PRN SL 10/30/17 23:00 11/29/17 22:59 Polyethylene (Miralax Powder Packet) 17 gm DAILY PRN PO 10/30/17 23:00 11/29/17 22:59 Metoprolol Succinate (Toprol Xl Tab) 25 mg DAILY PO 10/31/17 09:00 11/30/17 08:59 10/31/17 08:36 25 MG Aspirin (Aspirin Chew) 81 mg QAM PO 10/31/17 09:00 11/30/17 08:59 10/31/17 08:36 81 MG Albuterol/ Ipratropium (Duoneb) 3 ml QIDR INH 10/31/17 08:00 11/30/17 07:59 11/01/17 07:05 3 ML Miscellaneous Information (Consult) 1 ea UD PRN N/A 10/30/17 23:15 11/29/17 23:14 Piperacillin Sod/ Tazobactam Sod 3.375 gm/Dextrose 115 ml @ 28.75 mls/ hr Q8H IV 10/31/17 06:00 11/07/17 05:59 11/01/17 06:08 28.75 MLS/HR Gadobutrol (Gadavist) 7.5 mmol UD PRN IV 10/31/17 01:10 11/04/17 01:09 Potassium Chloride (Klor-Con Tab) 20 meq BID PO 10/31/17 21:00 11/01/17 21:01 10/31/17 21:06 20 MEQ Azithromycin 500 mg/Dextrose 255 ml @ 250 mls/hr Q24H IV 10/31/17 10:00 11/07/17 09:59 10/31/17 11:06 250 MLS/HR Nicotine (Nicoderm Cq 21MG Patch) 1 patch QAM TD 11/01/17 09:00 12/01/17 08:59 11/01/17 07:26 1 PATCH Miscellaneous (Remove Nicoderm Patch) 1 ea HS N/A 10/31/17 21:00 11/30/17 20:59 10/31/17 21:06 1 EA Objective Vital Signs Date Time Temp Pulse Resp B/P (MAP) Pulse Ox O2 Delivery O2 Flow Rate FiO2 11/01/17 07:12 99 16 90 Room Air 11/01/17 00:00 Room Air 10/31/17 23:05 36.9 84 16 98/60 (73) 91 Room Air 10/31/17 19:47 66 16 92 Room Air 10/31/17 15:50 Room Air 10/31/17 15:46 61 16 94 Room Air 10/31/17 15:04 36.8 70 16 104/67 (79) 93 Room Air 10/31/17 14:47 Room Air 10/31/17 12:04 36.9 66 14 93 3.0 10/31/17 12:00 Room Air 10/31/17 12:00 36.6 83 18 96/64 (75) 92 Room Air 10/31/17 11:14 66 14 93 Room Air 10/31/17 08:08 36.9 70 18 108/69 (82) 96 Laboratory Results 11/01/17 05:19 Red Blood Count 3.22, Mean Corpuscular Volume 103.1, Mean Corpuscular Hemoglobin 33.5, Mean Corpuscular Hemoglobin Concent 32.5, Mean Platelet Volume 9.0, Neutrophils (%) (Auto) 75.6, Lymphocytes (%) (Auto) 13.8, Monocytes (%) ( Auto) 8.9, Eosinophils (%) (Auto) 1.2, Basophils (%) (Auto) 0.2, Neutrophils # ( Auto) 9.33, Lymphocytes # (Auto) 1.70, Monocytes # (Auto) 1.10, Eosinophils # ( Auto) 0.15, Basophils # (Auto) 0.02 11/01/17 05:19 Test 10/31/17 08:25 10/31/17 15:03 11/01/17 05:19 Urine WBC (Auto) 1-5 /hpf (0-5) Urine RBC (Auto) 0-4 /hpf (0-4) Urine Hyaline Casts (Auto) 0 /lpf (0-5) Urine Epithelial Cells (Auto) >30 /lpf (0-5) Urine Bacteria (Auto) NEG (NEG) Urine Color YELLOW Urine Appearance CLEAR (CLEAR) Urine pH 7.0 (4.5-7.5) Urine Specific [place] 1.007 (1.000-1.030) Urine Protein NEG (NEG) Urine Glucose (UA) NEG (NEG) Urine Ketones NEG (NEG) Urine Occult Blood NEG (NEG) Urine Nitrite NEG (NEG) Urine Bilirubin NEG (NEG) Urine Urobilinogen NEG (NEG) Urine Leukocyte Esterase NEG (NEG) White Blood Count 12.34 K/uL (4.8-10.8) Red Blood Count 3.22 M/uL (4.2-5.4) Hemoglobin 10.8 g/dL (12.0-16.0) Hematocrit 33.2 % (37-47) Mean Corpuscular Volume 103.1 fL (80-100) Mean Corpuscular Hemoglobin 33.5 pg (25-34) Mean Corpuscular Hemoglobin Concent 32.5 g/dl (32-36) Platelet Count 289 K/uL (130-400) Mean Platelet Volume 9.0 fL (7.4-10.4) Neutrophils (%) (Auto) 75.6 % Lymphocytes (%) (Auto) 13.8 % Monocytes (%) (Auto) 8.9 % Eosinophils (%) (Auto) 1.2 % Basophils (%) (Auto) 0.2 % Neutrophils # (Auto) 9.33 K/uL (1.4-6.5) Lymphocytes # (Auto) 1.70 K/uL (1.2-3.4) Monocytes # (Auto) 1.10 K/uL (0.11-0.59) Eosinophils # (Auto) 0.15 K/uL (0-0.5) Basophils # (Auto) 0.02 K/uL (0-0.2) RDW Standard Deviation 52.0 fL (36.4-46.3) RDW Coefficient of Variation 13.7 % (11.5-14.5) Immature Granulocyte % (Auto) 0.3 % Immature Granulocyte # (Auto) 0.04 K/uL (0.00-0.02) Anion Gap 4.0 mmol/L (3-11) Est Creatinine Clear Calc Drug Dose 109.5 ml/min Estimated GFR () 119.9 Estimated GFR (Non- 103.4 BUN/Creatinine Ratio 10.1 (10-20) Calcium Level 7.8 mg/dl (8.5-10.1) Magnesium Level 1.9 mg/dl (1.8-2.4) Resident Tracking Resident Involvement: Resident Care Provided Care Provided: Adult Hospital Medicine (inpatient)
[2017-11-01 08:22] VITALS: BP 105/51; PULSE 91; TEMP 37.1; O2SAT 92
[2017-11-01] MEDS: POTASSIUM CHLORIDE 20 MEQ TABCR PO SCH (09:08)
[2017-11-01] MEDS: METOPROLOL SUCC 25MG EXT REL TAB PO SCH (09:08)
[2017-11-01] MEDS: ASPIRIN 81 MG CHEW PO SCH (09:08)
[2017-11-01] MEDS: AZITHROMYCIN IV 500 MG in DEXTROSE 5% 250ML 250 ML IV SCH (10:37)
[2017-11-01 11:23] VITALS: PULSE 94; O2SAT 94
[2017-11-01] MEDS ORDERED: VNTHFA/IN INH (13:18)
[2017-11-01] MEDS ORDERED: AZIT-57 PO (13:18)
[2017-11-01 13:24] VITALS: BP 105/51; PULSE 94; TEMP 37.1; O2SAT 94
--- NOTE | 2017-11-01 13:24 | Discharge Instructions ---
Discharge Instructions Date of Service Nov 01, 2017. Admission Reason for Admission: Altered Mental Status Discharge Discharge Diagnosis / Problem: Altered mental status, Pneumonia Discharge Goals Goal(s): Improve disease control, Learn about illness Activity Recommendations Activity Limitations: resume your previous activity . Instructions / Follow-Up Instructions / Follow-Up You were admitted to the hospital with concerns about slurred speech and what we call "altered mental status". This appears to have completely resolved. While the exact cause is unclear, it is very likely the combination of your not sleeping for upwards of 48 hours at a time along with Ambien use was strongly contributing. You were also found to have a pneumonia when we did imaging of your chest. - It is recommended that you do not use either ambien or chantix, as both of these medicines can cause similar symptoms to your slurred speech. - You are being sent home on an antibiotic called azithromycin. Please take this for three more days to complete the course. You are also being prescribed an albuterol inhaler which is only for if you have a cough or mild shortness of breath. If your breathing worsens, please see your doctor or go to an emergency department. - The CT scan of your chest showed the beginnings of what is likely emphysema. This can happen with long-term smoking. You are very strongly advised to quit smoking immediately. - Please follow up with your primary care provider for the pneumonia as well as your insomnia and difficulties with urination. - You are also recommended to see a psychiatrist, partially for your history of anxiety, but also to help with possible medications that will finally help with your sleep. - Return to the emergency department if you notice any difficulty breathing, chest pains, any concerns about your mental status as you had before, or with any other acute concerns. Current Hospital Diet Patient's current hospital diet: AHA Diet (Heart Healthy) Discharge Diet Recommended Diet: AHA Diet (Heart Healthy) Pending Studies Studies pending at discharge: yes List of pending studies: Blood cultures from October 30. Medical Emergencies . Who to Call and When: Medical Emergencies: If at any time you feel your situation is an emergency, please call 911 immediately. . Non-Emergent Contact Non-Emergency issues call your: Primary Care Provider .
--- NOTE | 2017-11-01 13:33 | Discharge Summary ---
Discharge Summary Date of Service Nov 01, 2017. Discharge Summary Admission Date: Oct 30, 2017 at 21:06 Discharge Date: Nov 01, 2017 Discharge Disposition: Home Principal Diagnosis: Altered mental status Problems/Secondary Diagnoses: - Community acquired pneumonia - Insomnia - Nicotine use Procedures: 30Oct2017 - CHEST ONE VIEW PORTABLE IMPRESSION: Infiltrative changes right upper lobe and bibasilar regions. 30Oct2017 - CT chest without contrast IMPRESSION: 1. Diffuse bilateral parenchymal infiltrative change most prominent in the right upper lobe. 2. Mild reactive mediastinal as well as right hilar adenopathy with mild narrowing of the right hilar bronchi. 3. Diagnostic considerations include diffuse pneumonitis versus atypical pulmonary edema. 31Oct2017 - MRI OF THE BRAIN WITHOUT AND WITH IV CONTRAST IMPRESSION: 1. Examination mildly limited due to motion artifact 2. Normal MRI of the brain for age Consultations: Neurology recommendations on 31Oct2017 Overall patient appeared to have had acute encephalopathy that was multifactorial including severe insomnia, medications, and right upper lobe pneumonia. No suggestion of recent seizures. Sounds like single life time seizure in 2005 may have been medication provoked. Pneumonia management per hospitalist team. Recommend that she follow-up with her primary care physician regarding severe insomnia. I would also highly recommend following up with a psychiatrist for severe insomnia (typically this is due to uncontrolled anxiety or depression). Patient seems resistant to following up to psychiatry at this time. May continue Maxalt as needed for migraine headaches. Instructed her not to use more than 2 days out of the week to avoid rebound headaches. Can take over- the-counter Aleve in between if needed. Medication Reconciliation New Medications: Albuterol Hfa (Ventolin Hfa) 200 Puffs/64079 Mcg Aers 1-2 PUFFS INH Q6H PRN for Shortness of Breath, #1 INHALER Azithromycin (Azithromycin) 250 Mg Tab 250 MG PO DAILY for 3 Days, #3 TAB Next dose SundayNovember 02 Continued Medications: Gabapentin (Neurontin) 300 Mg Cap 300 MG PO TID, CAP Hydrocodon/Acetaminophen 5MG/300MG (Vicodin (5MG/300MG)) 1 Tab Tab 1 TAB PO BID PRN for Pain, TAB Metoprolol Succinate (Toprol Xl) 25 Mg Tab 10 MG PO DAILY, #30 TAB Trazodone Hcl (Trazodone) 100 Mg Tab 150 MG PO HS, TAB Discontinued Medications: Zolpidem Tartrate (Ambien) 5 Mg Tab 1 TAB PO HS for 30 Days, #30 TAB 2 Refills Discharge Exam General Appearance: Awake, A&O x3, speaking clearly and coherently in full sentences, and appears in NAD. CV: +S1S2 RRR, no murmurs. No peripheral edema. Pulm: Rhonchi in right upper lobe. No respiratory distress or accessory muscle use. Abdomen: +BS, soft, non-tender, non-distended. Extremities: No pedal edema or calf tenderness. Neuro: Speaking clearly in full sentences, no slurred speech. Symmetric smile. Strength 5/5 in all extremities. Distal extremity sensation equal and intact bilaterally. Review of Systems: Constitutional: No fever, No chills Respiratory: + cough, No shortness of breath Cardiovascular: No chest pain, No edema Abdomen: No nausea, No vomiting, No diarrhea Genitourinary - Female: + urinary retention, No dysuria Psychiatric: + anxiety, + insomnia Hospital Course HPI at time of admit on Oct 30, 2017 at 23:46 The patient is a 47 year old female with a past medical history of HTN, Restless Leg Syndrome, Insomnia, Anxiety, and Asthma that presents as a direct admit from [facility] with AMS x 24 hours. The patients states that yesterday evening he began to notice the patient was having slurring of speech, although this not abnormal for her because she occassionally has these episodes after prolonged periods of sleeplessness. In this case, the patient has been up for almost the last 48 hours. The patient woke up this morning and once again was having slurring of speech and then was having hallucinations of people once they arrived at the ED. The patient also had persicutory hallucinations that her was trying to have her admitted to an inpatient psych facility. The patient has no past history of significant mental illness other than anxiety and has had never been admitted to a psych facility. CT head showed no acute abnormalities at [facility]. The patient was found to have a RUL pneumonia on CXR and states that she had been having progressive shortness of breath and cough over the last week. She also appreciates intermittent fever, chills, and muscle aches. The patient was also found to have urinary retention at [facility] and required a straight catheterization that yielded > 1000 cc of urine, although her UA was normal. The patient takes multiple medications for her Insomnia, Anxiety, Restless Leg, and Back Pain that could all contribute to her AMS although the patient states she has not taken extra doses of medications and does not recall any aspiration events. The patient denies any suicidal ideations or intention to hurt herself. The does provide a history of a previous seizure in 2005 that involved foaming of the mouth and generalized seizure like activity although no diagnosis was provided. She also had similar slurring of speech last summer that was believed to be secondary to her diuretics which were subsequently changed and her slurred speech resolved. Discharge summary on 01Nov2017 47 yo female admitted on early 31Oct2017 s/p transfer from [facility] for AMS. PMH: HTN, Restless Leg Syndrome, Insomnia, Anxiety, and Asthma Acute Encephalopathy: Per report, CT head at OSH was normal and UDS was positive for opiates only (and patient is on vicodin for back pain). Monitor strip is NSR. 07Mar MRI brain normal (but with motion artifact). 07Mar EEG normal. Neurology consulted, see their note. Overall thought is her ambien may have been a major contributor, as she is completely back at her baseline at time of discharge (per patient and at bedside). Pneumonia: Patient had noted recent cough and fevers, but says both since improved. Per CT chest, has RUL infiltrate with mediastinal & right hilar adenopathy. No reported exposure to TB, recent travel, or exotic animals at home. Granddaughter recently had the flu, but patient is influenza negative here. Here started on zosyn q8h and azithromycin for atypical coverage. Duonebs QID as well. BCx x 2 no growth to date. Afebrile > 24 hours at discharge. - Sending patient home on remaining course of azithromycin as well as an albuterol mdi. - Recommended close PCM follow up for the same. Passed her "two step" ambulation evaluation, no need for home oxygen at present. Urinary retention: Patient says it has "always been that way". CT scan at OSH noted "markedly hydropic urinary bladder" possibly due to outlet obstruction vs neurogenic etiology. Also noted enlargement of both kidneys without hydronephrosis. Here continued to have some retention. UA was clear, though. Recommended continued outpatient evaluation/management. Insomnia / Possible gina: Report of patient being up for 48 hours straight. Patient says she's had similar insomnia for 30+ years. Some report of seeing psych before for anxiety but not necessarily insomnia. Patient advised to see them for possible medical management options. HTN: No acute issues. Back Pain: No acute issues. Restless Leg Syndrome: No acute issues. Nicotine Use: Smokes 1 ppd. Restarted her nicotine patch. Discussed at great length that she has early emphysematous changes on her chest CT. Strongly advised her to stop smoking stat. Resident Physician Supervision Note: I interviewed and examined the patient. Discussed with Dr. Toscano and agree with findings and plan as documented in the note. Any exceptions or clarifications are listed here: None This patient is doing quite well she was talked sternly about stopping her smoking and recommending a psychiatric consultation as an outpatient i to continue coverage for atypical pneumonia as well as her inhaled medications she did have to sit prior to going home that she does not require oxygen Vital signs show temperature 36 9 pulse 99 respiration 16 BP 190/60 O2 sat 98 and room air her lung exam is with increased expiratory time however no wheezes or focal air loss Patient will go home to finish her azithromycin medications and follow-up with her outpatient provider to discuss how anxiety may have a role in her insomnia she will also try her best to stop smoking Documented By: Shiv Patton Total Time Spent: Greater than 30 minutes This includes examination of the patient, discharge planning, medication reconciliation, and communication with other providers. Discharge Instructions Please refer to the electronic Patient Visit Report (Discharge Instructions) for additional information. Additional Copies To Malcolm Bah D.O. Resident Tracking Resident Involvement: Resident Care Provided Care Provided: Adult Hospital Medicine (inpatient)
[2017-11-02] MEDS ORDERED: AZITHROMYCIN 250 MG TAB PO SCH (09:00)
== END 2017-11-01 14:28 | disposition home or self-care (01) | DRG 193 ==
LOC: EEVIPCON 21:06 → C.2T 21:06 → ENRESERV 10-31 11:02 → C.MSW 10-31 11:59
PROVIDERS: ADMIT Internal Medicine; ATTEND Internal Medicine
DX: J18.9 Pneumonia, unspecified organism (principal); J96.01 Acute respiratory failure with hypoxia; G93.40 Encephalopathy, unspecified; I10 Essential (primary) hypertension; F41.9 Anxiety disorder, unspecified; G47.00 Insomnia, unspecified; R33.9 Retention of urine, unspecified; G25.81 Restless legs syndrome; M54.9 Dorsalgia, unspecified; J45.909 Unspecified asthma, uncomplicated; Z79.899 Other long term (current) drug therapy; Z88.5 Allergy status to narcotic agent; F17.200 Nicotine dependence, unspecified, uncomplicated